=== PATIENT | female | born 1965 | race Caucasian/White ===

== ENCOUNTER → 2021-06-18 | Outpatient (CLI) | payer BC ==
[2021-06-18 14:10] VITALS: TEMP 98.2
[2021-06-18 14:35] VITALS: BP 135/76; PULSE 58
[2021-06-18 14:52] VITALS: BMI 28.9
--- NOTE | 2021-06-18 16:14 | P.BASOAP ---
Subjective Progress Note Date: 06/18/21 Principal diagnosis: GERD 55 year female known to our service. Patient on sleeve gastrectomy 2013. Patient has gained 20 pounds since she was last seen 2-3 years ago. Patient still having intermittent heartburn and has been having increased vomiting and occasional episodes of epigastric pain. Says lately she feels that she has been vomiting almost daily. Previous EGD performed at outside institution. That report not available to me. History of hiatal hernia repair at the time of her sleeve gastrectomy. Abdominal pain occurs a few times per week. Taking H2 blockers currently. Patient had routine labs by her primary care physician. Her iron was low. She went on iron supplementation and recent labs showed improvement in her iron level. She has repeat labs ordered in September. Objective - Vital Signs Vital signs: Vital Signs Temp 98.2 F 06/18/21 13:57 Pulse 58 L 06/18/21 13:57 Resp BP 135/76 06/18/21 13:57 Pulse Ox Intake & Output 06/17/21 06/18/21 06/18/21 18:59 06:59 18:59 Weight 69.4 kg - Exam Abdomen: Soft, nontender, nondistended Assessment/Plan (1) GERD (gastroesophageal reflux disease) Narrative/Plan: 55-year-old female with complaints of GERD and vomiting with epigastric pain. He was EGD 2-3 years ago. Will try to obtain the previous EGD report. Will order upper GI at this time. Begin omeprazole daily. Follow-up after upper GI performed. Plan: Date: 06/18/21 Initial Weight: Initial BMI: Current Weight: 69.4 kg Current BMI: 28.9 Type of Surgery: Total Volume in Band: Previous Volume: Volume Removed: Volume Added: Band Size:
== END ==
LOC: BARWHC3 13:47
PROVIDERS: ATTEND Surgery
DX: K21.9 Gastro-esophageal reflux disease without esophagitis (principal); R11.10 Vomiting, unspecified
CPT/HCPCS: 99211

== ENCOUNTER 2021-06-21 08:43 | Day surgery (SDC) | payer BC ==
[2021-06-19 11:05] VITALS: BMI 28.9
--- NOTE | 2021-06-20 23:02 | HP ---
HISTORY AND PHYSICAL CHIEF COMPLAINT: Retained ventilation tubes. HISTORY OF PRESENT ILLNESS: This patient is a 55-year-old female who was recently seen in my office for evaluation of tubes that were still present in her ears. The patient states that she had the tubes placed in her ears over [address] Moseley. This procedure was carried out at least 2 times. She is a nonsmoker and she has not had any ear infections. At the time that she was seen in my office, clinical examination revealed the presence of T-type ventilation tubes present in both middle ear spaces. It was recommend that these be removed in an effort to prevent any perforation. The patient was cautioned, however, that many times when this type of tubes are removed, they do leave a residual perforation. Past medical history reveals that the patient has NO KNOWN ALLERGIESTO MEDICATIONS. Current medications include Lexapro, hydrochlorothiazide, and Pepcid. Review of systems revealed the cardiovascular system was positive for hypertension. The remainder review of systems is essentially unremarkable. PHYSICAL EXAMINATION: The patient is a very pleasant 55-year-old female who was alert and cooperative. HEENT EXAMINATION: Patient is normocephalic. Tympanic membranes reveal the presence of retained ventilation tubes. Pupils equal, round and reactive to light and accommodation. Extraocular movements within normal limits. Intranasal examination reveals moderate septal deviation with compensatory hypertrophy of the inferior turbinates and a moderate amount of mucus on the mucous membranes and draining down the posterior pharynx. Examination of the oropharynx, cranial nerves 2-12 and remainder of the head and neck exam all within normal limits. Chest/cardiovascular: Both lung foreman are clear to percussion and auscultation. The patient is in regular sinus rhythm. S1 and S2 are present without any murmurs, S3s or S4s. Peripheral pulses are bilaterally symmetrical and within normal limits. ABDOMEN: There is no evidence any masses, megaly or tenderness. The abdomen is soft. Skin is unremarkable. Musculoskeletal/neurological are within normal limits. Pelvic and rectal exam was deferred at this time because the patient has this done on a regular basis at her family physician's office. The remainder of physical exam is unremarkable. Previous surgical history reveals the patient has had a bilateral myringotomy with insertion of ventilation tubes x2, tonsillectomy, adenoidectomy, gastric sleeve. The patient is 2 , 2 para 0 miscarriage 0 . IMPRESSION: Retained ventilation tubes. PLAN: The patient is scheduled to undergo removal of retained ventilation tubes under IV sedation with M.A.C. in the morning. ATTENTION RNS IN THE PRE-SURGICAL AREA: I have not ordered any pre-surgical prophylactic antibiotics for this patient. If the pharmacy department sends any pre- surgical prophylactic antibiotics to the pre-surgical area for this patient, please return that medication to the pharmacy department and make sure that the patient's account is credited appropriately. I have discussed the risks, benefits and alternative therapies for the above-mentioned procedure and for both sedation/analgesia as well as necessary blood product administration, if indicated, as they pertain to this patient. The patient has indicated his or her understanding and acceptance of the risks and procedures discussed. MARLAL / IJN: [id number] /
[~2021-06-21 08:43] MED LIST: DEXAMETHASONE SOD PHOSPHATE 4 MG/ML 1 ML VIAL IV ONE; HYDROmorphone 0.5 MG/0.5 ML SYRINGE IVP PRN; LACTATED RINGERS 1,000 ML IV SCH; LIDOCAINE 1% (10MG/ML) FOR IV START INTRADERMA PRN; MIDAZOLAM 2 MG/2 ML VIAL IV PRN; ONDANSETRON 4 MG/2 ML VIAL IVP ONE; Pre Op ABX Message 1 EACH MISC MISCELLANE ONE
[2021-06-21 09:10] LABS: Glucose,Whole Blood 101 mg/dL (75-99)
[2021-06-21 09:12] VITALS: TEMP 96.5
[2021-06-21] MEDS ORDERED: SCOPOLAMINE 1.5MG/72HR PATCH TRANSDERM ONE (09:21)
[2021-06-21] MEDS ORDERED: PROPOFOL 10 MG/ML 20 ML VIAL IV ONE (10:08)
[2021-06-21] MEDS ORDERED: GLYCOPYRROLATE 0.2 MG/ML 2 ML VIAL ONE (10:08)
[2021-06-21] MEDS ORDERED: MIDAZOLAM 2 MG/2 ML VIAL ONE (10:08)
[2021-06-21] MEDS ORDERED: fentaNYL (PF) 50 MCG/ML 2 ML AMP ONE (10:08)
[2021-06-21] MEDS ORDERED: GELATIN SPONGE,ABSORB (SMALL) 1 EACH SPONGE TOPICAL ONE (10:32)
[2021-06-21] MEDS ORDERED: OFLOXACIN 0.3% OTIC DROPS 5 ML BTL BOTH EARS ONE (10:36)
[2021-06-21 11:07] VITALS: BP 110/72; PULSE 58; RESP 18
--- NOTE | 2021-06-22 05:18 | OP ---
OPERATIVE REPORT DATE OF SURGERY: 06/21/2021. PREOPERATIVE DIAGNOSIS: Retained T-type ventilation tubes in both ears. POSTOPERATIVE DIAGNOSIS: Retained T-type ventilation tubes in both ears/tympanic membranes with bilateral residual perforations. ANESTHESIA: IV sedation with MAC. OPERATIVE PROCEDURE: Removal of retained T-type ventilation tubes from both tympanic membranes and Gel-Foam patching residual perforation. OPERATING SURGEON: Dr. Jennings. COMPLICATIONS: None. ESTIMATED BLOOD LOSS: Zero. OPERATIVE PROCEDURE: The patient was placed on the operating table in supine position. After uneventful induction and IV sedation, satisfactory sedation/anesthesia was obtained. Next, using the Zeiss operating microscope, the patient's right ear was draped in the usual and customary fashion. Next, a #3 aural speculum was placed in the patient's right external auditory canal and the canal was cleansed of all wax and debris. The retained ventilation tube was subsequently removed using a pair of alligator forceps. The edges of the residual perforation was freshened up and a Gel-Foam patch was applied. Next, attention was directed to the left ear where the same procedure was carried out that is using the Zeiss operating microscope and a #3 aural speculum, the left external auditory canal was cleansed of all wax and debris. Once again using an alligator forceps, the T-type ventilation tube was removed without incident. The residual perforation was repaired by a freshening up the edges with a myringotomy knife. Subsequently, passing it with Gelfoam. At this point, the procedure was terminated. There were no intraoperative complications. Patient tolerated the procedure well and was returned to the recovery room in satisfactory condition. MMODL / IJN: [id number] /
== END 2021-06-21 11:20 | disposition home or self-care (01) ==
LOC: OR 08:43
PROVIDERS: ATTEND Otolaryngology
DX: T16.1XXA Foreign body in right ear, initial encounter (principal); T16.2XXA Foreign body in left ear, initial encounter; I10 Essential (primary) hypertension; G47.33 Obstructive sleep apnea (adult) (pediatric); R42 Dizziness and giddiness; K21.9 Gastro-esophageal reflux disease without esophagitis; Z79.899 Other long term (current) drug therapy
CPT/HCPCS: 69205; J2250; J1100; J2405; J3010; J2704

== ENCOUNTER → 2021-07-04 | Outpatient (CLI) | payer BC ==
--- NOTE | 2021-07-04 13:16 | FL ---
EXAMINATION TYPE: FL barium swallow DATE OF EXAM: 07/04/2021 CLINICAL INDICATION: 55-year-old female R13.10, specified dysphasia. Epigastric burning and severe he artburn. History of gastric sleeve in 2013. COMPARISON: None Total Fluoroscopy Time: 2 minutes 12 seconds 54 images obtained. FINDINGS: Single contrast technique was utilized due to patient's gastric surgery. The swallowing mechanism is normal and hypopharyngeal anatomy is preserved. There is minimal anterior endplate spondylosis C5-C6 and C6-C7 that causes minimal impressions onto the posterior wall of the cervical esophagus. Otherwi se, the cervical and thoracic portions have a normal course and caliber. Mild tertiary peristaltic wa ves are noted. The mucosa is normal and no persistent filling defect is encountered. There is a moder ate-sized sliding hiatal hernia. Even with the patient upright, during Valsalva maneuver, there is se citlali gastroesophageal reflux backup into the mouth. IMPRESSION: 1. Moderate-sized sliding hiatal hernia with severe gastroesophageal reflux even when the patient is upright. Reflux comes back up into the mouth. 2. Very mild age-related dysmotility.
== END | disposition home or self-care (01) ==
LOC: RADUSWWP 07:50
PROVIDERS: ATTEND Surgery
DX: K21.9 Gastro-esophageal reflux disease without esophagitis (principal); K44.9 Diaphragmatic hernia without obstruction or gangrene; K22.8 Other specified diseases of esophagus; Z98.84 Bariatric surgery status
CPT/HCPCS: 74220

== ENCOUNTER → 2021-07-16 | Outpatient (CLI) | payer BC ==
[2021-07-16 14:11] VITALS: BP 133/81; PULSE 64; RESP 16; TEMP 98.2; BMI 29.2
--- NOTE | 2021-07-16 14:23 | P.BASOAP ---
Subjective Progress Note Date: 07/16/21 Principal diagnosis: GERD Patient returns after having her upper GI. Patient's upper GI showed small to moderate sized hiatal hernia with significant reflux. Patient was started on omeprazole 20 mg once daily last visit. She has had good relief of her symptoms since then. Doing well at this time. She is actually doing a half marathon later this month. Last EGD 2 years ago. Objective - Vital Signs Vital signs: Vital Signs Temp 98.2 F 07/16/21 14:07 Pulse 64 07/16/21 14:07 Resp 16 07/16/21 14:07 BP 133/81 07/16/21 14:07 Pulse Ox Intake & Output 07/15/21 07/16/21 07/16/21 18:59 06:59 18:59 Weight 70.307 kg - Exam Abdomen: Soft, nontender, nondistended Assessment/Plan (1) GERD (gastroesophageal reflux disease) Narrative/Plan: Patient doing well at this time. Continue antiacid therapy. We'll repeat upper endoscopy if symptoms recur. Patient may require repeat hiatal herniorrhaphy at some point. Plan: Date: 07/16/21 Initial Weight: Initial BMI: Current Weight: 70.307 kg Current BMI: 29.2 Type of Surgery: Total Volume in Band: Previous Volume: Volume Removed: Volume Added: Band Size:
== END ==
LOC: BARWHC3 13:52
PROVIDERS: ATTEND Surgery
DX: K44.9 Diaphragmatic hernia without obstruction or gangrene (principal)
CPT/HCPCS: 99211

== ENCOUNTER 2021-10-03 07:44 | Day surgery (SDC) | payer BC ==
[2021-10-01 14:16] VITALS: BMI 29.8
[~2021-10-03 07:44] MED LIST changes: -DEXAMETHASONE SOD PHOSPHATE 4 MG/ML 1 ML VIAL IV ONE; -HYDROmorphone 0.5 MG/0.5 ML SYRINGE IVP PRN; -LIDOCAINE 1% (10MG/ML) FOR IV START INTRADERMA PRN; -MIDAZOLAM 2 MG/2 ML VIAL IV PRN; -ONDANSETRON 4 MG/2 ML VIAL IVP ONE; -Pre Op ABX Message 1 EACH MISC MISCELLANE ONE
[2021-10-03] MEDS ORDERED: LACTATED RINGERS 1,000 ML IV ONE (08:21)
[2021-10-03 08:23] VITALS: TEMP 97.1
[2021-10-03 08:27] LABS: Glucose,Whole Blood 89 mg/dL (75-99)
[2021-10-03] MEDS ORDERED: PROPOFOL 10 MG/ML 20 ML VIAL IV ONE (09:12)
--- NOTE | 2021-10-03 09:23 | P.PCN ---
Date of Procedure: 10/03/21 Procedure(s) Performed: BRIEF HISTORY: Patient is a 56-year-old pleasant white female scheduled for an elective colonoscopy as a part of screening for colorectal neoplasia. PROCEDURE PERFORMED: Colonoscopy. PREOPERATIVE DIAGNOSIS: Screening for colon cancer. IV sedation per Anesthesia. PROCEDURE: After informed consent was obtained, the patient, was brought into the endoscopy unit. IV sedation was administered by Anesthesia under continuous monitoring. Digital rectal examination was normal. Initially the Olympus CF-160 flexible video colonoscope was then inserted in the rectum, gradually advanced into the cecum without any difficulty. Careful examination was performed as the scope was gradually being withdrawn. Ileocecal valve and the appendiceal orifice were visualized and appeared normal. Prep was excellent. Mucosa of the cecum, ascending colon, transverse colon, descending colon, sigmoid colon, and rectum appeared normal. Retroflexion was performed in the rectum and weight 2 internal hemorrhoids were seen. The patient tolerated the procedure well. IMPRESSION: Normal-appearing colon from rectum to cecum with no evidence of colorectal neoplasia. Grade 2 internal hemorrhoids RECOMMENDATIONS: Findings of this examination were discussed with the patient as well as a family.. She was advised to have a repeat screening colonoscopy in 10 years.
[2021-10-03 09:57] VITALS: BP 103/62; PULSE 68; RESP 16
== END 2021-10-03 10:17 | disposition home or self-care (01) ==
LOC: ORWHC2ENDO 07:44
PROVIDERS: ATTEND Internal Medicine Gastroenterology
DX: Z12.11 Encounter for screening for malignant neoplasm of colon (principal); K64.1 Second degree hemorrhoids; I10 Essential (primary) hypertension; E11.9 Type 2 diabetes mellitus without complications; K21.9 Gastro-esophageal reflux disease without esophagitis; Z79.899 Other long term (current) drug therapy
CPT/HCPCS: J2704; G0121

== ENCOUNTER → 2023-11-30 | Outpatient (CLI) | payer MEDICAID ==
[2023-11-30 12:52] LABS: Appearance,Urine Cloudy (Clear); Bacteria,Urine Occasional /hpf; Bilirubin,Urine Negative (Negative); Blood,Urine Negative (Negative); Budding Yeast,Urine Few /hpf; Color,Urine Colorless; Glucose,Urine (UA) Negative (Negative); Ketones,Urine Negative (Negative); Leukocyte Esterase,Urine Large (Negative); Nitrite,Urine Negative (Negative); Protein,Urine Negative (Negative); RBC,Urine 9 /hpf (0-5); Specific Gravity,Urine 1.006 (1.001-1.035); Squamous Epithelial Cell,Urine 15 /hpf (0-4); Urobilinogen,Urine <2.0 mg/dL (<2.0); WBC,Urine 26 /hpf (0-5)
[2023-11-30 16:01] LABS: Basophils # (A) 0.04 X 10*3/uL (0.00-0.10); Basophils % (A) 0.7 %; Eosinophils # (A) 0.05 X 10*3/uL (0.04-0.35); Eosinophils % (A) 0.9 %; HCT 45.8 % (37.2-46.3); HGB 14.7 g/dL (12.0-15.0); Lymphocytes # (A) 1.08 X 10*3/uL (0.90-5.00); Lymphocytes % (A) 19.7 %; MCH 27.6 pg (27.0-32.0); MCHC 32.1 g/dL (32.0-37.0); MCV 86.1 FL (80.0-97.0); Mean Platelet Volume 9.7 FL (9.5-12.2); Monocytes # (A) 0.49 X 10*3/uL (0.20-1.00); NRBC Per 100 WBC 0 X 10*3/uL (0.00-0.01); Neutrophils # (A) 3.78 X 10*3/uL (1.80-7.70); Neutrophils % (A) 69.2 %; Platelet Count 412 X 10*3/uL (140-440); RBC 5.32 X 10*6/uL (4.10-5.20); RDW 14.5 % (11.5-14.5); WBC 5.47 X 10*3/uL (4.50-10.00)
[2023-11-30 16:34] LABS: ALT 14 U/L (8-44); AST 17 U/L (13-35); Albumin 4.7 g/dL (3.8-4.9); Albumin/Globulin Ratio 1.74 Ratio (1.60-3.17); Alkaline Phosphatase 79 U/L (41-126); BUN/Creat Ratio 14.62 Ratio (12.00-20.00); Blood Urea Nitrogen 11.7 mg/dL (9.0-27.0); Carbon Dioxide 28.4 mmol/L (21.6-31.8); Chloride 99 mmol/L (96-109); Chol/HDL Ratio 2.46 Ratio; Globulin 2.7 g/dL (1.6-3.3); Glucose 111 mg/dL (70-110); LDL Cholesterol,Calculated 122.2 mg/dL (0.0-131.0); Potassium 3.8 mmol/L (3.5-5.5); Sodium 138 mmol/L (135-145); Total Bilirubin 0.2 mg/dL (0.3-1.2); Total Protein 7.4 g/dL (6.2-8.2)
== END | disposition home or self-care (01) ==
LOC: LABWHC1 10:51
PROVIDERS: ATTEND Internal Medicine
DX: Z00.00 Encounter for general adult medical examination without abnormal findings (principal); I10 Essential (primary) hypertension; G47.33 Obstructive sleep apnea (adult) (pediatric); F32.9 Major depressive disorder, single episode, unspecified
CPT/HCPCS: 36415; 80053; 80061; 81001; 82306; 83036; 84443; 85025; 87086

== ENCOUNTER → 2023-12-11 | Outpatient (CLI) | payer MEDICAID ==
--- NOTE | 2023-12-14 19:40 | MR ---
EXAMINATION TYPE: MR hip RT wo con DATE OF EXAM: 12/11/2023 COMPARISON: No radiographic correlation available HISTORY: 58-year-old female M25.551, Rt hip pain TECHNIQUE: Multiplanar, multisequence images of the right hip were obtained without IV contrast. FINDINGS: Mild heterogeneous marrow signal which can be seen in setting of anemia, obesity, smoking, chronic di sease. Some fatty Modic type II endplate changes noted associated with moderate degenerative disc dis ease at L5-S1. The hips appear symmetric and intact without evidence for acute fracture or AVN. A small right-sided joint effusion is noted. There is some linear signal within the right acetabular labrum within the anterior superior quadrant, sagittal image 10. In addition, there is a strand of cysts spanning up to 3.1 cm along the anterior inferior corner of the acetabulum, either ganglion cyst or paralabral cysts. On the left, there is some increased signal at the gluteal insertion suggesting tendinosis and a poss ible tiny partial tear of the lateral gluteus medius insertion. Otherwise, the rectus femoris and hamstring origins as well as the iliopsoas and right gluteal insert ions are intact. The sacrum and SI joints appear intact with mild degenerative change on the left. The uterus is anteverted with a left posterior uterine fundus/body focal fibroid measuring 4.3 cm. Pr edominantly subserosal and intramural. IMPRESSION: 1. Asymmetric mild right hip joint effusion but without evidence for acute fracture or AVN. 2. There is some linear signal within the right acetabular labrum along the anterior superior quadran t. Additional string of tiny cysts spanning 3.1 cm along the anterior inferior quadrant of the right acetabulum. Findings suggestive of underlying labral tears. 3. Mild to moderate insertional gluteal tendinosis on the left with a tiny partial tear at the latera l gluteus medius insertion. 4. Dominant 4.3 cm fibroid along the left posterior uterine fundus/body.
== END | disposition home or self-care (01) ==
LOC: RADMRIMAIN 10:27
PROVIDERS: ATTEND Orthopaedic Surgery
DX: M25.451 Effusion, right hip (principal); D25.9 Leiomyoma of uterus, unspecified; M84.351A Stress fracture, right femur, initial encounter for fracture; I10 Essential (primary) hypertension

== ENCOUNTER → 2023-12-11 | Outpatient (CLI) | payer MEDICAID ==
--- NOTE | 2023-12-14 20:14 | MM ---
Reason for Exam: Screening (asymptomatic). Last mammogram was performed 13 year(s) and 4 month(s) ago. Patient History: Menarche at age 12. First Full-Term at age 23. Postmenopausal. Hormonal Contraceptives, starting at age 21 for 2 years. Maternal cousin had breast cancer, age 43. Paternal aunt had breast cancer, age 50. Maternal aunt had breast cancer, age 55. Risk Values: Nelly 5 year model risk: 1.3%. NCI Lifetime model risk: 7.7%. Prior Study Comparison: No prior studies available for comparison. Tissue Density: The breasts are heterogeneously dense, which may obscure small masses. Findings: Analyzed By CAD. There is an asymmetric density show no persisting abnormality on 3-D images. No significant mass, suspicious microcalcification, or other discrete abnormality is seen. Overall Assessment: Benign, BI-RAD 2 Management: Screening Mammogram of both breasts in 1 year. . Patient should continue monthly self-breast exams. A clinical breast exam by your physician is recommended on an annual basis. This exam should not preclude additional follow-up of suspicious palpable abnormalities. Note on Nelly scores and lifetime risk: 1. A Nelly score greater than 3% is considered moderate risk. If this is the case, consider specialist referral to assess eligibility for a risk reducing agent. 2. If overall lifetime risk for the development of breast cancer is 20% or higher, the patient may qualify for future screening with alternating mammogram and breast MRI. Electronically signed and approved by: Yoandy Pena M.D. Radiologist
== END | disposition home or self-care (01) ==
LOC: RADMAMWWP 11:15
PROVIDERS: ATTEND Internal Medicine
DX: Z12.31 Encounter for screening mammogram for malignant neoplasm of breast (principal); Z78.0 Asymptomatic menopausal state; Z80.3 Family history of malignant neoplasm of breast
CPT/HCPCS: 77063; 77067

== ENCOUNTER → 2024-08-30 | Outpatient (CLI) | payer MEDICAID ==
[2024-08-30 10:43] VITALS: BP 123/79; PULSE 57; RESP 15; TEMP 98.3
--- NOTE | 2024-08-30 11:50 | P.HPOB ---
History of Present Illness H&P Date: 08/30/24 Chief Complaint: The patient is here for her routine gynecologic exam. This is a 58-year-old with an LMP of 2016. The patient is here to establish with this office. It has been about 7 years since her last pelvic exam. She previously saw Dr. Resendiz for her gynecologic care. She is without gynecologic complaints and denies any postmenopausal bleeding. Review of Systems The patient has gained 15 pounds over the last year. She attributes this to increased stress and less activity. She denies respiratory, cardiac, or G.I. problems. Past Medical History Past Medical History: GERD/Reflux, Hyperlipidemia, Hypertension, Sleep Apnea/CPAP/BIPAP Additional Past Medical History / Comment(s): HYPOGLYCEMIA/pre-diabetes. PAST [employer]OR HISTORY: She has no history of STDs. History of Any Multi-Drug Resistant Organisms: None Reported Past Surgical History: Bariatric Surgery, Tonsillectomy, Tubal Ligation Additional Past Surgical History / Comment(s): lap band, gastric sleeve with Laron fundoplication. Ear tubes. EGD. Colonoscopy 2020(next after 5yr). Past Anesthesia/Blood Transfusion Reactions: Motion Sickness, No Reported Reaction Past Psychological History: Anxiety, Depression Smoking Status: Never smoker Past Alcohol Use History: Occasional, Rare Past Drug Use History: None Reported - Past Family History Mother History Unknown: Yes Family Medical History: Cancer, Hypertension Additional Family Medical History / Comment(s): Lung cancer. . Father Family Medical History: Cancer, Hypertension, Myocardial Infarction ([place]) Additional Family Medical History / Comment(s): Colon cancer. . Brother(s) Family Medical History: Cancer, Hypertension Additional Family Medical History / Comment(s): Throat cancer. . Sister(s) Family Medical History: Cancer, Diabetes Mellitus, Hypertension Additional Family Medical History / Comment(s): Lung cancer. . Medications and Allergies Home Medications and Allergies Comment(s): Rosuvastatin daily. Home Medications Medication Instructions Recorded Confirmed Type hydroCHLOROthiazide [Hydrodiuril] 25 mg PO QAM 06/06/21 08/30/24 History trandolapriL [Mavik] 2 mg PO QAM 06/06/21 08/30/24 History Biotin 5 mg PO DAILY 06/19/21 08/30/24 History Omeprazole 40 mg PO -BRKFST 30 Days #30 cap 06/05/23 08/30/24 Rx busPIRone HCl [Buspar] 15 mg PO BID 30 Days #90 tab 06/05/23 08/30/24 Rx Magnesium 200 mg PO HS 08/30/24 08/30/24 History Mirtazapine [Remeron] 15 mg PO DAILY 08/30/24 08/30/24 History Allergies Allergy/AdvReac Type Severity Reaction Status Date / Time pseudoephedrine Allergy Rapid Unverified 08/30/24 10:37 [From Sudafed] Heart Rate Exam Vital Signs Temp Pulse Resp BP Pulse Ox 08/30/24 10:40 98.3 F 57 L 15 123/79 96 Intake and Output 08/29/24 08/30/24 08/30/24 22:59 06:59 14:59 Other: Weight 77.564 kg Height 5 foot 1 inch, weight 171 pounds, BMI 32.3. This is a well-developed well-nourished white female who is alert and oriented times 3 in no acute distress. HEENT: Within normal limits. NECK: Supple without mass or thyromegaly. CHEST AND LUNGS: Clear to auscultation. HEART: Regular rate and rhythm. BREASTS: Are without mass or discharge. AXILLARY EXAM: Negative for adenopathy. BACK: Negative for CVA tenderness. ABDOMEN: Soft, nontender, without palpable masses. PELVIC EXAM: Normal external genitalia with mild atrophy. Cervix and vagina appear normal with mild atrophy. There is no unusual discharge. There is no evidence of prolapse. The uterus is midposition, nongravid size and nontender. There are no palpable adnexal masses or tenderness. RECTAL EXAM: Rectovaginal exam is negative for mass or tenderness and is negative for occult blood. EXTREMITIES: Nontender. Additional studies: The patient had a hip MRI on 12/11/2023 which showed a posterior uterine fibroid measuring 4.3 cm. IMPRESSION: 1. 58-year-old menopausal female with normal gynecologic exam. 2. Known 4.3 cm uterine fibroid noted as an incidental finding on a hip MRI done on 12/11/2023. Patient is asymptomatic. PLAN: 1. Pap smear cotest was performed. 2. Self breast awareness was discussed with the patient. We have also discussed symptoms associated with inflammatory breast cancer. 3. Screening mammogram will be due in December 2024 and the order slip was given to the patient for this. 4. Osteoporosis prevention was discussed. I have stressed the importance of adequate calcium, vitamin D and regular exercise. Recommended amounts of calcium and vitamin D were also discussed. She states her last bone density test was done about 7 years ago and was normal. I have recommended repeating the bone density test. The order slip was given to the patient for this. She states she plans on doing it at the same time as her mammogram in 2024. 5. We have discussed her uterine fibroid. We will follow this conservatively. She will call if she think she is having problems related to this. 6. She was advised to return in one year for her annual well woman exam.
== END ==
LOC: WWCWWP 10:25
PROVIDERS: ATTEND Obstetrics & Gynecology
DX: Z01.419 Encounter for gynecological examination (general) (routine) without abnormal findings (principal); D25.9 Leiomyoma of uterus, unspecified; Z78.0 Asymptomatic menopausal state; Z88.8 Allergy status to other drugs, medicaments and biological substances

== ENCOUNTER → 2024-11-25 | Outpatient (CLI) | payer MEDICAID ==
[2024-11-25 12:42] LABS: INR 0.9 (<1.2); Prothrombin Time 10.5 sec (10.0-12.5)
[2024-11-25 15:16] LABS: HCT 44.9 % (37.2-46.3); HGB 14.5 g/dL (12.0-15.0); MCH 27.9 pg (27.0-32.0); MCHC 32.3 g/dL (32.0-37.0); MCV 86.5 FL (80.0-97.0); Mean Platelet Volume 9.8 FL (9.5-12.2); NRBC Per 100 WBC 0 X 10*3/uL (0.00-0.01); Platelet Count 436 X 10*3/uL (140-440); RBC 5.19 X 10*6/uL (4.10-5.20); WBC 5.71 X 10*3/uL (4.50-10.00)
[2024-11-25 15:21] LABS: ALT 24 U/L (8-44); AST 26 U/L (13-35); Albumin 4.6 g/dL (3.8-4.9); Albumin/Globulin Ratio 1.92 Ratio (1.60-3.17); Alkaline Phosphatase 72 U/L (41-126); BUN/Creat Ratio 7.56 Ratio (12.00-20.00); Blood Urea Nitrogen 6.8 mg/dL (9.0-27.0); Calcium 9.9 mg/dL (8.7-10.3); Carbon Dioxide 27.7 mmol/L (21.6-31.8); Chloride 98 mmol/L (96-109); Globulin 2.4 g/dL (1.6-3.3); Glucose 98 mg/dL (70-110); Potassium 3.9 mmol/L (3.5-5.5); Sodium 137 mmol/L (135-145); Total Bilirubin 0.3 mg/dL (0.3-1.2)
== END | disposition home or self-care (01) ==
LOC: LABPAT 11:27
PROVIDERS: ATTEND Orthopaedic Surgery
DX: Z01.818 Encounter for other preprocedural examination (principal); Z22.322 Carrier or suspected carrier of Methicillin resistant Staphylococcus aureus; M16.11 Unilateral primary osteoarthritis, right hip
CPT/HCPCS: 80053; 85027; 85610; 85730; 86850; 86900; 86901; 87070; 93005

== ENCOUNTER 2024-12-06 05:33 | Day surgery (SDC) | payer MEDICAID ==
[2024-11-30 14:57] VITALS: BMI 30.9
[~2024-12-06 05:33] MED LIST changes: -LACTATED RINGERS 1,000 ML IV SCH; +TRANEXAMIC 1,000 MG/100ML-NACL 1,000 MG in SALINE 1 100ML.BAG IVPB PRN
[2024-12-06] MEDS ORDERED: LIDOCAINE 1% (10MG/ML) FOR IV START INTRADERMA PRN (05:38)
[2024-12-06] MEDS ORDERED: LACTATED RINGERS 1,000 ML IV SCH (05:38)
[2024-12-06 06:17] LABS: Glucose,Whole Blood 100 mg/dL (70-110)
[2024-12-06] MEDS: MELOXICAM 7.5 MG TAB PO PRN (06:32)
[2024-12-06] MEDS: ACETAMINOPHEN TAB 500 MG TAB PO PRN (06:32)
[2024-12-06] MEDS: DEXAMETHASONE SOD PHOSPHATE 4 MG/ML 1 ML VIAL IV ONE (06:32)
[2024-12-06] MEDS: ONDANSETRON 4 MG/2 ML VIAL IVP ONE (06:32)
[2024-12-06] MEDS: GABAPENTIN 300 MG CAP PO PRN (06:35)
[2024-12-06] MEDS: fentaNYL (PF) 50 MCG/ML 2 ML AMP IVP PRN (06:37)
[2024-12-06] MEDS: MIDAZOLAM 2 MG/2 ML VIAL IV PRN (06:37)
[2024-12-06] MEDS: IV FLUID CONTINUATION 1,000 ML IV ONE ×2 (06:52→10:04)
[2024-12-06] MEDS ORDERED: LIDOCAINE 1% INJ 10MG/ML (20 ML MDV) ONE (06:55)
[2024-12-06] MEDS ORDERED: PROPOFOL 10 MG/ML 20 ML VIAL IV ONE (06:55)
[2024-12-06] MEDS ORDERED: MIDAZOLAM 2 MG/2 ML VIAL ONE (06:55)
[2024-12-06] MEDS ORDERED: DEXAMETHASONE SOD PHOSPHATE 4 MG/ML 1 ML VIAL ONE (06:55)
[2024-12-06] MEDS ORDERED: TRANEXAMIC 1,000 MG/100ML-NACL PREMIX BAG ONE (06:55)
[2024-12-06] MEDS ORDERED: HYDROmorphone (PF) 1 MG/ML ONE (06:55)
[2024-12-06] MEDS ORDERED: fentaNYL (PF) 50 MCG/ML 2 ML AMP ONE (06:55)
[2024-12-06] MEDS ORDERED: ROPIVACAINE 5 MG/ML 30 ML VIAL ONE (06:55)
[2024-12-06] MEDS ORDERED: SUCCINYLCHOLINE CHLORIDE 200 MG/10 ML VIAL IV ONE (06:55)
[2024-12-06] MEDS ORDERED: SODIUM CHLORIDE 0.9% 1,000 ML IV SCH (07:00)
[2024-12-06] MEDS ORDERED: MAGNESIUM HYDROXIDE 2,400 MG/30 ML CUP PO PRN (07:00)
[2024-12-06] MEDS ORDERED: HYDROmorphone 1 MG/ML 1 ML SYRINGE IVP PRN (07:00)
[2024-12-06] MEDS ORDERED: NALOXONE 0.4 MG/ML 1 ML VIAL IV PRN (07:00)
[2024-12-06] MEDS ORDERED: ONDANSETRON 4 MG/2 ML VIAL IVP PRN (07:00)
[2024-12-06] MEDS ORDERED: HYDROmorphone 0.5 MG/0.5 ML SYRINGE IVP PRN ×2 (07:00)
[2024-12-06] MEDS ORDERED: HYDROcodone/APAP 7.5-325MG 1 EACH TAB PO PRN ×2 (07:03)
[2024-12-06] MEDS: ROPIVACAINE 5 MG/ML 30 ML VIAL MISCELLANE ONE (07:33)
[2024-12-06] MEDS: LACTATED RINGERS 1,000 ML IV ONE (08:14)
--- NOTE | 2024-12-06 08:14 | P.OP ---
Date of Procedure: 12/06/24 Preoperative Diagnosis: Severe osteoarthritis, right hip Postoperative Diagnosis: Severe osteoarthritis, right hip Procedure(s) Performed: Right total hip arthroplasty with a direct anterior approach Implants: [employer] Polarstem standard size 2 with a collar [employer] R3, 3 hole hemispherical acetabular shell, 52 mm [employer] Reflection 6.5 mm cancellus screws, 20 mm, 25 mm [employer] R3, XLPE 20 acetabular liner [employer]hew Oxinium femoral head 36 mm, +0 All components were press-fit. The articulation is Oxinium on polyethylene. Anesthesia: GETA Surgeon: Magnus Baird Cell Tester #1: Nikole Cook Estimated Blood Loss (ml): 200 Pathology: none sent Condition: stable Disposition: PACU Indications for Procedure: After failure of conservative treatment we discussed the surgical and nonsurgical treatment options at length. Patient wishes to proceed with a total hip arthroplasty with a direct anterior approach. Complications specific to this procedure were discussed at length, including but not limited to infection, leg length discrepancy, dislocation, nerve injury, and fracture. Covid-19 was also discussed at length with the patient, and they are aware of the current policies and procedures. The patient was given the option of delaying surgery, but they elect to proceed knowing these risks. Patient is aware of all these complications and informed consent was obtained Operative Findings: The operative findings are consistent with severe osteoarthritis of the right hip Description of Procedure: The patient was seen and evaluated in the preoperative area and the consent was reviewed. The operative site was marked with a skin marker. The patient verified the procedure and operative site. A JONATHAN block was placed by anesthesia in the preoperative area. The patient was then brought to the operating room and given preoperative antibiotics intravenously. 1 g of Tranexamic acid was also given intravenously. A general anesthetic was administered by the anesthesia department. The patient was then placed on the [place] table with the bony prominences well-padded. The hip area was then prepped with a ChloraPrep solution and draped in the usual sterile fashion. A universal timeout was then performed, which confirmed the patient's name, surgical site, ALLERGIES, and procedure being performed on the consent. Next the incision site was located at 1 cm distal and 4 cm lateral to the anterior superior iliac spine. The skin and subcutaneous tissues were sharply incised. Incision was carefully dissected down to the fascia overlying the tensor fascia dagmar muscle. This fascia was then incised in line with the muscle fibers. Care was taken to stay laterally in order to avoid injuring the lateral femoral cutaneous nerve. Next, using blunt finger dissection, the tensor fascia dagmar muscle was dissected off its investing fascia. The muscle was then carefully retracted laterally with a cobra retractor over the lateral neck of the femur. Next, the circumflex vessels were identified and cauterized using the Aquamantis device. The anterior hip capsule was then exposed. The capsule was then opened and an inverted T fashion. The retractors were then placed intracapsularly. The retractors were maintained intracapsular throughout the procedure. The proximal femur was then visualized. Fluoroscopic x-rays were then taken in order to evaluate the preoperative leg lengths. A small amount of traction was placed on the leg. The femoral neck was then osteotomized at the appropriate level above the lesser trochanter. A small wedge of bone was then removed from the remaining femoral head. Next, using a corkscrew the femoral head was removed from the acetabulum. On gross visual inspection, the femoral head had complete loss of articular cartilage and multiple periarticular osteophytes. The femoral head was then measured. Attention was then turned to the acetabulum. The acetabulum was exposed and any remaining labrum was excised. Sequential reaming of the acetabulum was performed using fluoroscopic guidance until there was a good bed of bleeding cancellus bone. When the appropriate size was reached, a trial was then placed. The position and fit of the trial was checked with fluoroscopy. The trial was then removed. Then, using fluoroscopic guidance, the final implant was impacted at 20 of anteversion and 40 of abduction, and fully seated in the acetabulum. 2 screws were then placed in the acetabulum. Again fluoroscopy was used to check position of the screws. Next, the liner was then impacted, with a 20 elevated liner located in the anterior superior quadrant. Component locking was confirmed. Attention was then directed to the femur. With the aid of the [place] table, the femur was externally rotated to approximately 130, extended, and adducted under the opposite leg. A side hook was then placed under the proximal femur, and the side hook elevator was used to elevate the proximal femur while releasing the capsule. Retractors were then placed. A capsular release was performed, as well as a release of the conjoined tendon, which afforded excellent visualization of the proximal femur. Next, a box osteotome was used to lateralize the proximal femur. A stave mill hand was then used to locate the femoral canal. Sequential broaching was then performed with appropriate size which afforded excellent fixation in the proximal femur. A trial was then placed with appropriate head and neck, and the hip was gently reduced with the aid of the [place] table. Fluoroscopy was then used to check position of the components, as well as to evaluate the leg lengths and offset. The leg lengths and offset were measured as closely as possible to ensure stability of the hip. The hip was then gently dislocated and the trials were then removed. Final implants were then impacted and the hip was again reduced. Final fluoroscopic x-rays confirmed that the components were in anatomic position. The leg lengths and offset were measured and were found to coincide with the trial measurements. The hip was also taken through range of motion, and found to be stable. The hip was then copiously irrigated with antibiotic solution with pulsatile lavage. The hip was then irrigated with Irrisept solution. The soft tissues were then injected with a ropivacaine solution. A second dose of 1 g of Tranexamic acid was also given intravenously. The fascia was then closed with 2-0 strata fix suture. The subcutaneous tissue was closed with 3-0 Vicryl. The subcuticular tissue was closed with 3-0 moncryl suture. The skin was then closed with Exofin skin glue. After the glue and dried, and Optifoam silver impregnated dressing was applied. The patient was then transferred to the recovery room in stable condition. The medical technician assistant FAVIOLA Berg was required due to the complexity of surgery, and the need for skilled registered nurse surgical services for positioning, draping, exposure, retraction, and closure of the wound.
--- NOTE | 2024-12-06 08:34 | P.ANPRN ---
Procedure Note - Anesthesia - Nerve Block Performed Right Warren Single Time Out Performed: Yes Date of Procedure: 12/06/24 Procedure Start Time: 06:37 Procedure Stop Time: 06:44 Location of Patient: PreOp Indication: Acute Post-Operative Pain, Requested by Surgeon Sedation Type: Sedate with meaningful contact maintained Preparation: Sterile Prep Position: Supine Needle Types: Pajunk Needle Gauge: 21 Ultrasound used to visualize needle placement: Yes Ultrasound used to observe medication spread: Yes Injectate: 0.5% Ropivacaine (see comment for volume) (30 mL +4 mg dexamethasone) Blood Aspirated: No Pain Paresthesia on Injection Noted: No Resistance on Injection: Normal Image Stored and Saved: Yes Events: Uneventful and Well Tolerated
[2024-12-06] MEDS: HYDROmorphone 0.5 MG/0.5 ML SYRINGE IVP PRN (08:52)
[2024-12-06 08:56] VITALS: TEMP 97.1
--- NOTE | 2024-12-06 08:58 | FL ---
EXAMINATION TYPE: FL guidance operating room, XR Hip Limited RT, XR Hip Limited RT DATE OF EXAM: 12/06/2024 8:23 AM COMPARISON: Pre Operative Images if available both CT/MRI or plain film CLINICAL INDICATION: Female, 59 years old with history of Rt Hip-Ant; TECHNIQUE: FL guidance operating room, XR Hip Limited RT, XR Hip Limited RT, multiple fluoroscopic im ages provided for procedure. DAP: 1.3664 mGym2 Gycm2 uGym2 cGycm2 or equivalent. FINDINGS: Fluoroscopic images during internal fixation/arthroplasty demonstrate hardware in appropriate positio n. Hardware appears intact. No immediate complication identified. IMPRESSION: 1. No evidence for intraoperative complication. 2. Please see the operative/procedural note for further details. [facility], , 12/06/2024 8:40 AM
[2024-12-06 12:13] VITALS: BP 110/69; PULSE 71; RESP 14
[2024-12-06] MEDS ORDERED: SENNOSIDES-DOCUSATE SODIUM 1 EACH TAB PO SCH (21:00)
[2024-12-06] MEDS ORDERED: ASPIRIN 81 MG PO SCH (21:00)
== END 2024-12-06 12:46 | disposition home health service (06) ==
LOC: OR 05:33
PROVIDERS: ATTEND Orthopaedic Surgery
DX: M16.11 Unilateral primary osteoarthritis, right hip (principal); G89.18 Other acute postprocedural pain; I10 Essential (primary) hypertension; E78.00 Pure hypercholesterolemia, unspecified; G47.30 Sleep apnea, unspecified
CPT/HCPCS: 27130; 97530; 97161; 64999; 73501; C1776; J2250; J0330; J1100; J0690; J2405; J2003; J3010; J1171 ×2; J2795; J2704

== ENCOUNTER → 2025-03-15 | Outpatient (CLI) | payer MEDICAID ==
--- NOTE | 2025-03-15 07:41 | BD ---
EXAMINATION TYPE: Axial Bone Density DATE OF EXAM: 03/15/2025 CLINICAL HISTORY: 59 years old Female. ICD-10 CODE: M85.851 OSTEOPENIA , Additional History: Height: 61.5 Weight: 164.2 FRAX RISK QUESTIONS: Alcohol (3 or more units per day): no Family History (Parent hip fracture): no Glucocorticoids (More than 3mos): no (Ex: prednisone, prednisolone, methylprednisolone, dexamethasone, and hydrocortisone). History of Fracture in Adulthood: no Secondary Osteoporosis: 1. Type 1 Diabetes: no 2. Hyperthyroidism: no 3. Menopause before 45: no 4. Malnutrition: no 5. Chronic liver disease: no Rheumatoid Arthritis: no Current Tobacco Use: no RISK FACTORS HISTORY OF: Hip Fracture (Right/Left): no Spine Fracture: no History of Wrist Fracture: no Surgery to Spine/Hip(right/left)/Wrist (right/left): Rt Hip Replacement When: 2024 MEDICATIONS: Thyroid Medications: no Osteoporosis Medications: no EXAM MEASUREMENTS: Bone mineral densitometry was performed using the [employer]. Bone mineral density as measured about the Lumbar spine is: ----- L1-L4(G/cm2): 1.260 T Score Values are as follows: ----- L1: 0.2 ----- L2: 0.4 ----- L3: 0.7 ----- L4: 1.0 ----- L1-L4: 0.7 Z Score Values are as follows: ----- L1: 1.0 ----- L2: 1.2 ----- L3: 1.4 ----- L4: 1.8 ----- L1-L4: 1.4 Baseline Study Bone mineral density about the L hip (g/cm2): 1.009 T Score values are as follows: -----L Neck: -1.1 -----L Total: 0.0 Z Score values are as follows: -----L Neck: -0.2 -----L Total: 0.6 Baseline Study FRAX%s: The graph provided illustrates a 6.6% chance for a major osteoporotic fx and a 0.4% chance fo r the hips probability for fx in 10 years time. IMPRESSION: Osteopenia (T Score between -2.5 and -1) femoral neck level left hip. There is slightly increased risk of fracture and the patient may be considered for treatment. Re-Screen 2-5 years. NOTE: T-SCORE=SD OF THE YOUNG ADULT MEAN. [facility], , 03/15/2025 7:39 AM
--- NOTE | 2025-03-15 07:52 | MM ---
Reason for Exam: Screening (asymptomatic). Last mammogram was performed 1 year(s) and 3 month(s) ago. Patient History: Menarche at age 12. First Full-Term at age 23. Postmenopausal. Patient has history of breast feeding. Hormonal Contraceptives, starting at age 21 for 2 years. Maternal cousin had breast cancer, age 43. Paternal aunt had breast cancer, age 50. Maternal aunt had breast cancer, age 55. Niece had breast cancer at or over age 50. Maternal aunt had breast cancer under age 50. Risk Values: Nelly 5 year model risk: 1.3%. NCI Lifetime model risk: 7.6%. Prior Study Comparison: 08/21/2009 Bilateral Screening Mammogram, [facility]. 09/03/2009 Left Diagnostic Mammogram, [facility]. 08/06/2010 Bilateral Diagnostic Mammogram, [facility]. 12/11/2023 Bilateral MG 3D screening mammo w/cad, [facility]. Tissue Density: The breasts are heterogeneously dense, which may obscure small masses. Findings: Analyzed By CAD. Benign-appearing bilateral axillary lymph nodes are present. There is no suspicious group of microcalcifications or new suspicious mass in either breast. Overall Assessment: Negative, BI-RAD 1 Management: Screening Mammogram of both breasts in 1 year. . Patient should continue monthly self-breast exams. A clinical breast exam by your physician is recommended on an annual basis. This exam should not preclude additional follow-up of suspicious palpable abnormalities. Note on Nelly scores and lifetime risk: 1. A Nelly score greater than 3% is considered moderate risk. If this is the case, consider specialist referral to assess eligibility for a risk reducing agent. 2. If overall lifetime risk for the development of breast cancer is 20% or higher, the patient may qualify for future screening with alternating mammogram and breast MRI. [facility], , 03/15/2025 7:48 AM. Electronically signed and approved by: Yang Saldivar M.D.
== END | disposition home or self-care (01) ==
LOC: RADMAMWWP 07:04
PROVIDERS: ATTEND Internal Medicine
DX: Z12.31 Encounter for screening mammogram for malignant neoplasm of breast (principal); R92.333 Mammographic heterogeneous density, bilateral breasts; M85.852 Other specified disorders of bone density and structure, left thigh; Z78.0 Asymptomatic menopausal state; Z80.3 Family history of malignant neoplasm of breast
CPT/HCPCS: 77063; 77067; 77080